=== PATIENT | female | born 1965 | race Caucasian/White ===

== ENCOUNTER 2017-09-26 15:58 | Outpatient (CLI) | payer OTHER ==
--- NOTE | 2017-09-26 18:21 | Diagnostic Imaging Report ---
TORRES MARIE [facility] [id number] [facility] [address] [address] Report Submission Date: Sep 26, 2017 4:33:17 PM CDT Patient Study Name: NICOLE RENEE Date: Sep 26, 2017 4:08:51 PM CDT Modality Type: DX Gender: F Description: LOWER EXTREMITY : 65 Institution: [facility] Physician: TORRES MARIE Examination: Plain film right foot History: PT C/O DORSAL RIGHT FOOT PAIN AROUND THE FIRST AND SECOND METATARSAL. PT INJURED FOOT YESTERDAY PLAYING SOCCER WHEN THE RIGHT FOOT HIT THE GROUND. (Hx ) Findings: 3 views of the right foot demonstrates normal cortical margins. No fracture or dislocation. No soft tissue swelling. No joint effusion. Impression: No acute osseous process. Electronically signed on Sep 26, 2017 4:33:17 PM CDT by: Ramón WALLACE
== END 2017-09-26 16:00 ==
LOC: RAD 15:58
PROVIDERS: ATTEND Physician Assistant
DX: M79.671 Pain in right foot (principal); S99.921A Unspecified injury of right foot, initial encounter; Y99.9 Unspecified external cause status
CPT/HCPCS: 73630